=== PATIENT | female | born 1985 | race Caucasian/White ===

== ENCOUNTER 2017-04-18 02:00 | Emergency (ER) | payer OTHER ==
--- NOTE | 2017-04-18 02:27 | ED Physician Chart ---
ED Chief Complaint/HPI - Patient Information Date Seen:: 04/18/17 Time Seen:: 02:18 Chief Complaint:: anxiety History of Present Illness:: pt w hx of many panic attacks since 5 yoa. also has htn hx but is not compliant w her lisinopril. she is here today bc she was picking friends up from [employer] [employer] and on drive back car felt small and cramped...1 hr prior to ED she became anxious and felt sob. ems were called and say she was hyperventillating..seems some better now. chest feels tight. no fever. no leg pains or edema. no recent flight or prolonged immobilization. lmp now. no missed periods. bp 152/103 she is out of any meds for anxiety Allergies:: Allergies Allergy/AdvReac Type Severity Reaction Status Date / Time No Known Allergies Allergy Verified 04/18/17 02:13 Vitals:: Vital Signs - 8 hr 04/18/17 02:14 Temp 98.1 F HR 68 RR 20 BP 152/103 O2 Sat % 100 Historian:: Patient, EMS ED Review of Systems - Review of Systems General/Constitutional: No fever, No chills, No weight loss, No weakness, No diaphoresis, No edema, No loss of appetite Skin: No skin lesions, No rash, No bruising Head: No headache, No light-headedness Eyes: No loss of vision, No pain, No diplopia ENT: No earache, No nasal drainage, No sore throat, No tinnitus Neck: No neck pain, No swelling, No thyromegaly, No stiffness, No mass noted Cardio Vascular: No chest pain, No palpitations, No PND, No orthopnea, No edema , other (chest tight) Pulmonary: SOB, No SOB, No cough, No sputum, No wheezing GI: No nausea, No vomiting, No diarrhea, No pain, No melena, No hematochezia, No constipation, No hematemesis G/U: No dysuria, No frequency, No hematuria Eyeglass Maker: No vaginal discharge, No abnormal vaginal bleed Musculoskeletal: No bone or joint pain, No back pain, No muscle pain Endocrine: No polyuria, No polydipsia Psychiatric: Prior psych history, No depression, Anxiety, No suicidal ideation, Other (panic attack) Hematopoietic: No bruising, No lymphadenopathy Allergic/Immuno: No urticaria, No angioedema Neurological: No syncope, No focal symptoms, No weakness, No paresthesia, No headache, No seizure, No dizziness, No confusion, No vertigo ED Past Medical History - Past Medical History Past Medical History: HTN Social History: Non Smoker, No Alcohol Psychiatricy History: Other (anxiety) Medication: Reviewed (lisinopril (not always compliant)) Family Medical History - Family Member Mother History Unknown: Yes ED Physical Exam - Physical Examination General/Constitutional: Awake, Well-developed, well-nourished, Alert, No distress, GCS 15, Non-toxic appearing, Ambulatory Other Gen/Cons comments:: alert. talkative. no diaphoresis. no obvious physical stress other than anxious no edema. no leg pains/tndr. Head: Atraumatic Eyes: Lids, conjuctiva normal, PERRL, EOMI Skin: Nl inspection, No rash, No skin lesions, No ecchymosis, Well hydrated, No lymphadenopathy ENMT: External ears, nose nl, Nasal exam nl, Lips, teeth, gums nl Neck: Nontender, Full ROM w/o pain, No JVD, No nuchal rigidity, No bruit, No mass, No stridor Respiratory: Nl effort/Exclusion, Clear to Auscultation, No Wheeze/Rhonchi/Rales Other Respiratory comments:: clear/nonlabored Cardio Vascular: RRR, No murmur, gallop, rubs, NL S1 S2 GI: No tenderness/rebounding/guarding, No organomegaly, No hernia, Normal BS's, Nondistended, No mass/bruits, No McBurney tenderness : No CVA tenderness Extremities: No tenderness or effusion, Full ROM, normal strength in all extremities, No edema, Normal digits & nails Neuro/Psych: Alert/oriented, DTR's symmetric, Normal sensory exam, Normal motor strength, Judgement/insight normal, Mood normal, Normal gait, No focal deficits Other Neuro/Psych comments:: obvious anxiety Misc: normal gait, Normal back, No paraspinal tenderness ED Labs/Radiology/EKG Results - Lab Results Results: Laboratory Tests 04/18/17 04/18/17 04/18/17 02:37 02:37 02:37 WBC 9.8 RBC 5.01 Hgb 14.0 Hct 42.1 MCV 84.0 MCH 28.0 MCHC Differential 33.3 RDW 13.6 Plt Count 322 MPV 8.0 Neutrophils % 74.9 Lymphocytes % 19.4 L Monocytes % 4.6 Eosinophils % 0.6 Basophils % 0.5 Sodium 136 Potassium 3.2 L Chloride 105 Carbon Dioxide 22.3 Anion Gap 11.9 BUN 10 Creatinine 0.7 Est GFR ( Amer) > 60.0 Est GFR (Non-Af Amer) > 60.0 BUN/Creatinine Ratio 14.3 Glucose 125 H Calcium 10.0 Total Bilirubin 0.3 AST 28 ALT 26 Alkaline Phosphatase 92 Troponin I < 0.01 L Total Protein 8.0 Albumin 4.7 Globulin 3.3 Albumin/Globulin Ratio 1.4 Serum , Qual 04/18/17 02:37 WBC RBC Hgb Hct MCV MCH MCHC Differential RDW Plt Count MPV Neutrophils % Lymphocytes % Monocytes % Eosinophils % Basophils % Sodium Potassium Chloride Carbon Dioxide Anion Gap BUN Creatinine Est GFR ( Amer) Est GFR (Non-Af Amer) BUN/Creatinine Ratio Glucose Calcium Total Bilirubin AST ALT Alkaline Phosphatase Troponin I Total Protein Albumin Globulin Albumin/Globulin Ratio Serum , Qual NEGATIVE - EKG Interpretations EKG Time:: 02:30 Rate & Rhythm: nsr 77 [place]: 29 Intervals: nrml st/t waves ED Septic Shock - . Is Septic Shock (SBP<90, OR Lactate>4 mmol\L) present?: No - <6hrs of presentation: Vital Signs: Vital Signs - 8 hr 04/18/17 02:14 Temp 98.1 F HR 68 RR 20 BP 152/103 O2 Sat % 100 ED Reassessment (Disposition) - Reassessment Reassessment:: bp improved to 140/89 after catapres. pt much better..less anxious. breathing slowly and nonlabored. sao2 100pct on ra reviewed results w pt including low k and high glucose. advise rechk glucose by pmd. Reassessment Condition:: Improved - Diagnosis Diagnosis:: 1 anxiety / panic attack 2 htn - noncompliant w bp meds - Aftercare/Follow up Instructions Aftercare/Follow-Up Instructions:: Counseled pt regarding lab results/diagnosis & need follow up Medication Prescribed:: rx ativan 0.5mg no 15. - Patient Disposition Discharge/Transfer:: Home Condition at Disposition:: Improved ED Discharge Plan - Patient Disposition Instructions: Anxiety and Panic Attacks, [id number], Hypertension, Easy-to- Read Additional Instructions: FILL YOUR PRESCRIPTION AND TAKE DIRECTED. FOLLOW UP WITH YOUR REGULAR DOCTOR IN 2-3 DAYS IF NOT FEELING BETTER.
[2017-04-18 02:52] LABS: % BASOPHILS 0.5 % (0.0-2.0); % EOSINOPHILS 0.6 % (0.0-5.0); % LYMPHOCYTES 19.4 % (20.0-50.0); % MONOCYTES 4.6 % (2.0-10.0); % NEUTROPHILS 74.9 % (40.0-80.0); HEMATOCRIT 42.1 % (41.0-60); MEAN CORPUSCULAR HGB CONC 33.3 pg (28.0-36.0); NEUTROPHILE ABSOLUTE 7.3 Th/cmm (1.8-8.0); PLATELET COUNT 322 Th/cmm (150-400); RED BLOOD COUNT 5.01 Mil/cmm (3.80-5.10); RED CELL DISTRIBUTION WIDTH 13.6 % (11.5-20.0); WHITE BLOOD COUNT 9.8 Th/cmm (4.8-10.8)
[2017-04-18 03:00] LABS: ALB/GLOB RATIO 1.4 (1.0-1.8); ALKALINE PHOSPHATASE 92 U/L (34-104); ANION GAP 11.9 (7.0-16.0); BILIRUBIN,TOTAL 0.3 mg/dL (0.3-1.0); BUN - UREA NITROGEN 10 mg/dL (7-25); BUN/CREATININE RATIO 14.3; CARBON DIOXIDE 22.3 mEq/L (21.0-31.0); CHLORIDE 105 mEq/L (98-107); CREATININE - SERUM 0.7 mg/dL (0.6-1.2); GLUCOSE 125 mg/dL (70-105); POTASSIUM SERUM 3.2 mEq/L (3.5-5.1); SGOT 28 U/L (13-39); SGPT/ALT 26 U/L (7-52); SODIUM SERUM 136 mEq/L (136-145)
[2017-04-18] MEDS ORDERED: Potassium Chloride 20 mEq ER Tab PO ONE (03:11)
== END 2017-04-18 03:20 | disposition home or self-care (01) ==
LOC: ER 02:00
DX: F41.9 Anxiety disorder, unspecified (principal); I10 Essential (primary) hypertension
CPT/HCPCS: 99285; 93005; 84484; 36415; 85025; 84703; 80053; Q0162; Z7610